=== PATIENT | female | born 1940 | race Caucasian/White ===

== ENCOUNTER 2016-07-13 11:22 | Outpatient (CLI) | payer OTHER ==
--- NOTE | 2016-07-13 13:49 | Diagnostic Imaging Report ---
Indication: Dyspnea Technique: Continuous helical transaxial imaging of the chest was obtained from the thoracic inlet to the upper abdomen. No intravenous contrast was administered. Coronal 2-D reformats were also obtained. Total Dose length Product (DLP): [address] Dose Index Volume (CTDIvol): 19 mGy Comparison: none Findings: There is a solitary noncalcified pulmonary nodule demonstrated at the right lung base measuring 1.2 cm. The nodule is well-circumscribed. Consider CT PET and consultation with a thoracic surgeon for this solitary pulmonary nodule per Fleischner Society criteria. No additional nodules are identified. There is no consolidation or pleural disease, pleural effusions are identified. There is trace pericardial fluid noted. Generalized cardiomegaly is present. Coronary calcifications and aorta calcifications are present. Gallbladder sludge versus small stones noted. There is generalized osteopenia. Loss of height of several mid and lower thoracic vertebra noted. Impression: 1.2 cm solitary pulmonary nodule in the right lower lobe. Trace pericardial effusion Atherosclerotic vascular disease Small hiatal hernia Cardiomegaly Gallstones versus sludge Multiple, mild osteoporotic compression fracture deformities of thoracic vertebra. Degenerative changes noted. The CT scanner at [facility] is accredited by the [employer] and the scans are performed using dose optimization techniques as appropriate to a performed exam including Automatic Exposure control.
== END 2016-07-13 12:30 | disposition home or self-care (01) ==
LOC: CAT 11:22
DX: R05 Cough (principal); R91.1 Solitary pulmonary nodule; I31.3 Pericardial effusion (noninflammatory); I70.0 Atherosclerosis of aorta; K44.9 Diaphragmatic hernia without obstruction or gangrene; I51.7 Cardiomegaly; M81.0 Age-related osteoporosis without current pathological fracture
CPT/HCPCS: 71250